=== PATIENT | male | born 1975 | race Caucasian/White ===

== ENCOUNTER 2016-12-25 12:15 | Emergency (ER) | payer MEDICAID, OTHER ==
[2016-12-25 12:34] VITALS: BMI 19.5
[2016-12-25] MEDS ORDERED: Lidocaine 1%/Epinephrine 1:100000 30 ml vial IJ ONE (12:56)
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
[2016-12-25 14:05] VITALS: TEMP 98.2
[2016-12-25] MEDS ORDERED: Lidocaine 1% Inj (20ml) IJ STA (14:13)
[2016-12-25 15:02] VITALS: BP 120/72; PULSE 82; RESP 18; O2SAT 100
== END 2016-12-25 15:02 | disposition home or self-care (01) ==
LOC: ED 12:15
DX: S01.81XA Laceration without foreign body of other part of head, initial encounter (principal); W01.190A Fall on same level from slipping, tripping and stumbling with subsequent striking against furniture, initial encounter; Y93.01 Activity, walking, marching and hiking; Y92.038 Other place in apartment as the place of occurrence of the external cause